=== PATIENT | male | born 1965 | race Caucasian/White ===

== ENCOUNTER 2021-04-19 14:15 | Observation (INO) | payer OTHER ==
[~2021-04-19] VITALS: Ht 170.2 cm; Wt 90.3 kg
[2021-04-20] MEDS ORDERED: MELOXICAM7.5 MG PO (00:47)
[2021-04-20] MEDS ORDERED: HYDROCODON-ACE1 EAC4 PO (00:48)
[2021-04-20] MEDS ORDERED: BACLOFEN20 MG PO (00:49)
[2021-04-20] MEDS ORDERED: GRALISE600 MG PO (00:49)
[2021-04-20] MEDS ORDERED: PROTONIX40 MG PO (00:50)
[2021-04-20 08:41] LABS: HEMOGLOBIN 14.4 gm/dl (14.0-17.5); RED BLOOD COUNT 4.72 M/UL (4.20-5.50); WHITE BLOOD COUNT 8.4 K/UL (4.5-11.0)
[2021-04-20 08:43] LABS: BUN/CREATININE RATIO 15 (0-10)
--- NOTE | 2021-04-20 16:54 | NUR ---
PT UP IN CHAIR AT THIS TIME, 3ML AIR REMOVED FROM TR BAND, NO HEMATOMA OR OOZING NOTED, WILL CONTINUE TO MONITOR.
[2021-04-21 02:31] LABS: HEMOGLOBIN 13.1 gm/dl (14.0-17.5); RED BLOOD COUNT 4.43 M/UL (4.20-5.50); WHITE BLOOD COUNT 8.7 K/UL (4.5-11.0)
[2021-04-21 03:02] LABS: BUN/CREATININE RATIO 16 (0-10)
[2021-04-21] MEDS ORDERED: BRILINTA 90 MG90 MG PO (09:07)
[2021-04-21] MEDS ORDERED: ASPIRIN EC81 MG PO (09:07)
[2021-04-21] MEDS ORDERED: ATORVASTATIN CA20 MG PO (09:07)
[2021-04-21] MEDS ORDERED: LOPRESSOR 25 MG25 MG PO (09:07)
== END 2021-04-21 10:44 | disposition home or self-care (01) ==
LOC: PROG CARE 04-20 00:32
PROVIDERS: Internal Medicine Interventional Cardiology; ADMIT Internal Medicine
DX: I21.4 Non-ST elevation (NSTEMI) myocardial infarction (principal); I25.10 Atherosclerotic heart disease of native coronary artery without angina pectoris; M19.90 Unspecified osteoarthritis, unspecified site; K76.0 Fatty (change of) liver, not elsewhere classified; E78.5 Hyperlipidemia, unspecified; Z86.16 Personal history of COVID-19; Z87.891 Personal history of nicotine dependence; Z95.5 Presence of coronary angioplasty implant and graft; Z79.891 Long term (current) use of opiate analgesic; Z79.899 Other long term (current) drug therapy; Z20.822 Contact with and (suspected) exposure to COVID-19
CPT/HCPCS: ECHO; 36415; 71046; 80048; 80061; 82550; 82553; 83880; 84484; 85025; 85027; 85347; 85379; 93005; 93306; 93571; 99152; 99153; C1725; C1769; C1874; C1887; C1894; C9600; G0378; G0379; J0153; J1644; J1650; J2250; J3010; J3246; J7040; Q9967; U0002